=== PATIENT | male | born 1970 | race Caucasian/White ===

== ENCOUNTER → 2024-06-14 12:23 | Outpatient (REF) | payer BC, SELFPAY | LOC: HWRAD 12:23 | PROVIDERS: ATTENDING PHYSICIAN Nurse Practitioner Family | DX: M25.511 Pain in right shoulder (principal) | CPT/HCPCS: 72050; 73030 ==

== ENCOUNTER → 2024-09-05 09:06 | Outpatient (REF) | payer BC, SELFPAY | LOC: RCS 09:06 | PROVIDERS: ATTENDING PHYSICIAN Nurse Practitioner Family | DX: R00.0 Tachycardia, unspecified (principal) | CPT/HCPCS: 93306 ==

== ENCOUNTER → 2024-09-07 09:31 | Outpatient (REF) | payer BC, SELFPAY | LOC: RCS 09:31 | PROVIDERS: ATTENDING PHYSICIAN Nurse Practitioner Family | DX: R00.0 Tachycardia, unspecified (principal) | CPT/HCPCS: 93017 ==

== ENCOUNTER → 2024-09-20 10:30 | Outpatient (REF) | payer BC, SELFPAY | LOC: RCS 10:30 | PROVIDERS: ATTENDING PHYSICIAN Nurse Practitioner Family | DX: R00.0 Tachycardia, unspecified (principal) | CPT/HCPCS: 93225; 93226 ==